=== PATIENT | female | born 1995 | race Caucasian/White ===

== ENCOUNTER 2022-06-21 10:43 | Inpatient (IN) | payer OTHER ==
[2022-06-21] MEDS ORDERED: SODIUM CHLORIDE 0.9% 500 ML INFUS.BAG IV ONE (12:53)
[2022-06-21] MEDS ORDERED: ACETAMINOPHEN 1000 MG/100 ML BAG IVPB ONE (12:53)
[2022-06-21] MEDS ORDERED: ONDANSETRON 4 MG/2 ML VIAL IVPUSH ONE ×2 (12:53→15:46)
[2022-06-21] MEDS ORDERED: METHOCARBAMOL 500 MG TABLET PO ONE (13:03)
[2022-06-21] MEDS ORDERED: LIDOCAINE 5% TOPICAL PATCH TP ONE (13:03)
[2022-06-21] MEDS ORDERED: FAMOTIDINE 20 MG/50 ML IVPB 20 MG/50 ML MG IVPB ONE ×2 (13:06→13:09)
[2022-06-21] MEDS ORDERED: METHOCARBAMOL 500 MG TABLET ONE (13:09)
[2022-06-21] MEDS ORDERED: ACETAMINOPHEN INJECTION 100 ML IVPB ONE ×2 (13:09→21:51)
[2022-06-21] MEDS ORDERED: ONDANSETRON 4 MG/2 ML VIAL ONE ×2 (13:09→15:46)
[2022-06-21] MEDS ORDERED: LIDOCAINE 5% TOPICAL PATCH ONE (13:09)
[2022-06-21 13:52] LABS: BASO % 0.1 % (0-2.0); EOS % 0.1 % (0-4.5); HEMATOCRIT 38.2 % (32.4-45.2); LYMPH % 7.4 % (8-40); MCH 30.4 pg (25.7-33.7); MCHC 34.1 g/dl (32.0-36.0); MEAN CELL VOLUME 89.2 fl (80-96); MEAN PLT VOLUME 7.3 fl (7.5-11.1); MONO % 5.4 % (3.8-10.2); PLATELET COUNT 365 10^3/uL (134-434); RBC 4.28 M/mm3 (3.60-5.2); RDW 12.5 % (11.6-15.6); WHITE BLOOD COUNT 18.6 K/mm3 (4.0-10.0)
[2022-06-21 14:05] LABS: ALBUMIN 4.3 g/dl (3.4-5.0); BLOOD UREA NITROGEN 10.2 mg/dL (7-18); CALCIUM 9.4 mg/dL (8.5-10.1); MAGNESIUM 1.8 mg/dL (1.8-2.4)
[2022-06-21 14:08] LABS: CREATININE 0.8 mg/dL (0.55-1.3)
[2022-06-21 14:10] LABS: PH,URINE 6.5 (5.0-8.0); URINE APPEARANCE CLEAR; URINE BILIRUBIN NEGATIVE (NEGATIVE); URINE COLOR YELLOW; URINE GLUCOSE (UA) NEGATIVE (NEGATIVE); URINE KETONE NEGATIVE (NEGATIVE)
[2022-06-21 14:10] LABS: BILIRUBIN,TOTAL 0.6 mg/dL (0.2-1); TOT PROT 7.9 g/dl (6.4-8.2)
[2022-06-21 14:11] LABS: URINE LEUK ESTERASE TRACE (NEGATIVE); URINE NITRITE NEGATIVE (NEGATIVE); URINE PROTEIN NEGATIVE (NEGATIVE); URINE UROBILINOGEN 0.2 mg/dL (0.2-1.0)
[2022-06-21] MEDS ORDERED: KETOROLAC TROMETHAMINE 30 MG/1 ML VIAL IVPUSH ONE (14:42)
[2022-06-21] MEDS ORDERED: SODIUM CHLORIDE 0.9% 1000 ML INFUS.BAG IV ONE (14:42)
[2022-06-21 15:06] LABS: INR 1.23 (0.83-1.09); PROTHROMBIN TIME (PATIENT) 14.2 SEC (9.7-13.0)
[2022-06-21 15:08] LABS: ACTIVATED PTT 29.6 SECONDS (25.2-36.5)
[2022-06-21] MEDS ORDERED: morphine CARPU-JECT 4 MG/1 ML DISP.SYRIN IVPUSH ONE ×2 (15:41→20:44)
[2022-06-21] MEDS ORDERED: KETOROLAC TROMETHAMINE 15 MG/ML VIAL IVPUSH ONE (15:41)
[2022-06-21] MEDS ORDERED: KETOROLAC TROMETHAMINE 15 MG/ML VIAL ONE (15:42)
[2022-06-21] MEDS ORDERED: morphine SULFATE 4 MG/ML VIAL ONE ×2 (15:42→20:45)
[2022-06-21] MEDS ORDERED: PIPERACILLIN/TAZOB 4.5 GM 4.5 GM in DEXTROSE 5%-WATER 100 ML IVPB ONE (18:23)
[2022-06-21] MEDS ORDERED: VANCOMYCIN 1 GM in D5W (PRE-DOCKED) 1,000 MG/250 ML IVPB ONE (18:23)
[2022-06-21] MEDS ORDERED: PIPERACILLIN/TAZOB 4.5 GM 4.5 GM/100 ML BAG IVPB ONE (18:27)
[2022-06-21] MEDS ORDERED: VANCOMYCIN/WATER FOR INJ (PEG) 1,000 MG/200 ML BAG IVPB ONE (20:32)
[2022-06-21] MEDS ORDERED: ACETAMINOPHEN 1000 MG/100 ML BAG IVPB PRN (21:44)
[2022-06-21] MEDS ORDERED: LIDOCAINE PATCH REMOVAL MC SCH (22:00)
[2022-06-22] MEDS: SODIUM CHLORIDE 1,000 ML IV SCH ×2 (01:34→21:55)
[2022-06-22] MEDS ORDERED: ACETAMINOPHEN 1000 MG/100 ML BAG IVPB PRN ×2 (02:25→02:58)
[2022-06-22] MEDS ORDERED: IBUPROFEN 800 MG/8 ML IJ IVPB ONE ×2 (02:58→03:12)
[2022-06-22 04:22] VITALS: BMI 32.7
[2022-06-22] MEDS ORDERED: PIPERACILLIN/TAZOB 3.375 GM 3.375 GM/50 ML BAG IVPB SCH (06:30)
[2022-06-22] MEDS ORDERED: PIPERACILLIN/TAZOB 3.375 GM 3.375 GM in DEXTROSE 5%-WATER - 50 ML IVPB SCH (06:30)
[2022-06-22] MEDS: PIPERACILLIN/TAZOB 3.375 GM 3.375 GM in DEXTROSE 5%-WATER - 50 ML IVPB SCH ×3 (07:03→21:55)
[2022-06-22 09:31] LABS: BASO % 0.1 % (0-2.0); EOS % 0.3 % (0-4.5); HEMATOCRIT 30.3 % (32.4-45.2); HEMOGLOBIN 10.5 GM/dL (10.7-15.3); LYMPH % 9.8 % (8-40); MCH 31.1 pg (25.7-33.7); MCHC 34.6 g/dl (32.0-36.0); MONO % 8.4 % (3.8-10.2); NEUT % 81.4 % (42.8-82.8); PLATELET COUNT 240 10^3/uL (134-434); RBC 3.37 M/mm3 (3.60-5.2); RDW 12.6 % (11.6-15.6); WHITE BLOOD COUNT 15.8 K/mm3 (4.0-10.0)
[2022-06-22] MEDS: ENOXAPARIN NA (PORCINE) 40 MG/0.4 ML DISP.SYRIN SQ SCH (09:56)
[2022-06-22 09:58] LABS: ERYTHROCYTE SEDIMENTATION RATE 71 mm/hr (0-20)
[2022-06-22 09:59] LABS: CREATININE 0.6 mg/dL (0.55-1.3)
[2022-06-22 10:00] LABS: BILIRUBIN,TOTAL 0.4 mg/dL (0.2-1); BLOOD UREA NITROGEN 5.8 mg/dL (7-18); PHOSPHOROUS 2.5 mg/dL (2.5-4.9)
[2022-06-22 10:01] LABS: TOT PROT 5.9 g/dl (6.4-8.2)
[2022-06-22] MEDS: PHENOL 177 ML SPRAY BOTTLE MM PRN ×2 (10:09→22:25)
[2022-06-22 10:25] LABS: CALCIUM 7.5 mg/dL (8.5-10.1)
[2022-06-22 10:46] LABS: HIV INTERPRETATION NEGATIVE (NEGATIVE)
[2022-06-22] MEDS: IBUPROFEN 400 MG TABLET (FP) PO PRN ×2 (13:03→23:58)
[2022-06-22 22:20] VITALS: RESP 18
[2022-06-23 06:47] VITALS: BP 116/69; PULSE 95; TEMP 98.3
[2022-06-23 08:02] LABS: BASO % 0.2 % (0-2.0); EOS % 1.9 % (0-4.5); HEMOGLOBIN 9.8 GM/dL (10.7-15.3); LYMPH % 19.6 % (8-40); MCH 30.3 pg (25.7-33.7); MCHC 33.7 g/dl (32.0-36.0); MEAN CELL VOLUME 90.1 fl (80-96); MONO % 9.1 % (3.8-10.2); NEUT % 69.2 % (42.8-82.8); PLATELET COUNT 222 10^3/uL (134-434); RBC 3.22 M/mm3 (3.60-5.2); RDW 12.7 % (11.6-15.6); WHITE BLOOD COUNT 9.3 K/mm3 (4.0-10.0)
[2022-06-23 08:23] LABS: CALCIUM 7.8 mg/dL (8.5-10.1)
[2022-06-23 08:24] LABS: ALBUMIN 2.8 g/dl (3.4-5.0); BLOOD UREA NITROGEN 4.9 mg/dL (7-18); MAGNESIUM 2.2 mg/dL (1.8-2.4)
[2022-06-23 08:27] LABS: CREATININE 0.5 mg/dL (0.55-1.3)
[2022-06-23 08:28] LABS: TOT PROT 5.9 g/dl (6.4-8.2)
[2022-06-23 08:29] LABS: BILIRUBIN,TOTAL 0.2 mg/dL (0.2-1)
[2022-06-23] MEDS: ENOXAPARIN NA (PORCINE) 40 MG/0.4 ML DISP.SYRIN SQ SCH (09:26)
[2022-06-23] MEDS ORDERED: LACTOBACILLUS ACIDOPHILUS 1 TABLET PO SCH (10:00)
[2022-06-23] MEDS ORDERED: AMOX TR/POT CLAV 875MG/125MG TABLETS (FP) PO SCH (17:30)
== END 2022-06-23 12:39 | disposition home or self-care (01) | DRG 872 ==
LOC: JER 10:43 → JERBED 18:24 → J7W 06-22 04:00
PROVIDERS: ADMIT Internal Medicine; ATTEND Nurse Practitioner Acute Care
DX: A41.9 Sepsis, unspecified organism (principal); M54.9 Dorsalgia, unspecified; D72.829 Elevated white blood cell count, unspecified; E28.2 Polycystic ovarian syndrome
CPT/HCPCS: 0241U-QW; 36415; 71046-TC-FY; 71275-TC; 72100-TC-FY; 72157-TC; 72158-TC; 74177-TC; 80053; 81003; 82550; 83690; 83735; 84100; 84443; 84703; 85025; 85610; 85651; 85730; 86140; 86308; 86705; 86707; 86708; 86709; 86803; 87040; 87086; 87340; 87350; 87389; 87517; 87651; 93005; 93010; 99285-25; A9579; G0378; Q9967